=== PATIENT | female | born 1960 | race Caucasian/White ===

== ENCOUNTER 2017-03-29 12:40 | Emergency (ER) | payer OTHER ==
[2017-03-29 12:55] VITALS: BMI 33.6
--- NOTE | 2017-03-29 13:03 | PDOC ---
History of Present Illness - General Chief Complaint: Tachycardia Stated Complaint: CHEST PAIN - History of Present Illness Initial Comments: 03/29/17 13:38 56-year-old female history of hypertension and hyperlipidemia presents with palpitations since 9 AM this morning. Patient reports she was at work when she began to experience jaw and tongue pain and felt a little bit lightheaded. She then went home and began to feel short of breath. She called her daughter who then brought her to the emergency department. On arrival to the emergency department the patient was found to be tachycardic to 194. BP 139/90. EKG revealed supraventricular tachycardia. 2 attempts of vagal maneuvers followed by leg raises were attempted with no resolution of the tachycardia. The patient was then given 6 mg of adenosine with no resolution of the tachycardia followed by 12 mg of adenosine with improvement of tachycardia from 178 to 115. Repeat 12 -lead EKG with sinus tachycardia. Pt reports she feels much better but still has some SOB. No hx SVT. Prior to symptoms, pt was in her [facility], denies CP, headache, focal weakness, abd pain, LE edema, fevers, chills, N/V/D. Past History - Past Medical History Allergies/Adverse Reactions: Allergies Allergy/AdvReac Type Severity Reaction Status Date / Time No Known Allergies Allergy Verified 03/29/17 12:54 Home Medications: Ambulatory Orders Atorvastatin Ca [Lipitor] 20 mg PO HS 03/29/17 Losartan Potassium [Cozaar -] 50 mg PO DAILY 03/29/17 Other medical history: DENIES - Surgical History Cholecystectomy: Yes - Suicide/Smoking/Psychosocial Hx Smoking History: Never smoked Hx Alcohol Use: No Drug/Substance Use Hx: No Substance Use Type: None Review of Systems - Review of Systems Comments:: 03/29/17 15:23 GENERAL/CONSTITUTIONAL: No fever or chills. No weakness. HEAD, EYES, EARS, NOSE AND THROAT: No change in vision. No ear pain or discharge. No sore throat. GASTROINTESTINAL: No nausea, vomiting, diarrhea or constipation. GENITOURINARY: No dysuria, frequency, or change in urination. CARDIOVASCULAR: No chest pain or shortness of breath. RESPIRATORY: No cough, wheezing, or hemoptysis. MUSCULOSKELETAL: No joint or muscle swelling or pain. No neck or back pain. SKIN: No rash NEUROLOGIC: No headache, vertigo, loss of consciousness, or change in strength/ sensation. ENDOCRINE: No increased thirst. No abnormal weight change. HEMATOLOGIC/LYMPHATIC: No anemia, easy bleeding, or history of blood clots. ALLERGIC/IMMUNOLOGIC: No hives or skin allergy. *Physical Exam - Vital Signs Last Vital Signs Temp Pulse Resp BP Pulse Ox 98.2 F 194 H 20 139/65 100 03/29/17 12:50 03/29/17 12:50 03/29/17 12:50 03/29/17 12:50 03/29/17 12:50 - Physical Exam Comments: 03/29/17 15:38 GENERAL: Awake, alert, and fully oriented, in no acute distress HEAD: No signs of trauma EYES: PERRLA, EOMI, sclera anicteric, conjunctiva clear ENT: Auricles normal inspection, hearing grossly normal, nares patent, oropharynx clear without exudates. Moist mucosa NECK: Normal ROM, supple, no lymphadenopathy, JVD, or masses LUNGS: Breath sounds equal, clear to auscultation bilaterally. No wheezes, and no crackles HEART: tachy but regular to 184, normal S1 and S2, no murmurs, rubs or gallops ABDOMEN: Soft, nontender, normoactive bowel sounds. No guarding, no rebound. No masses EXTREMITIES: Normal range of motion, no edema. No clubbing or cyanosis. No cords, erythema, or tenderness BACK: No midline spinal tenderness in cervical/thoracic/lumbar region NEUROLOGICAL: Normal speech, cranial nerves intact, negative pronator drift, 5/ 5 strength in all 4 extremities, normal sensation to light touch in all 4 extremities, normal cerebellar exam, normal gait, normal reflexes and tone SKIN: Warm, Dry, normal turgor, no rashes or lesions noted. Heart Score/ECG Review - History History: Slightly suspicious - Electrocardiogram EKG: Non specific repolarization disturbance - Age Age: 45-65 - Risk Factors Risk Factors Heart Score: Yes Hx Hypercholesterolemia, Yes Hx Hypertension Based on the list above the patient has:: 1-2 risk factors - Troponin Troponin: </= normal limit - Score Heart Score - Total: 3 #1 03/29/17 13:05 Initial EKG with SVT to rate of 183. Normal axis, TWI III and avf, no ANISH 03/29/17 13:21 Post adenosine: Sinus tachycardia, rate 117, normal axis. TWI leads III and Avf, no ANISH ED Treatment Course - LABORATORY CBC & Chemistry Diagram: 03/29/17 14:00 03/29/17 14:00 Medical Decision Making - Critical Care Time Total Critical Care Time (minutes): 30 Critical Care Statement: The care of this patient involved high complexity decision making to prevent further life threatening deterioration of the patient 's condition and/or to evaluate & treat vital organ system(s) failure or risk of failure. - Medical Decision Making 03/29/17 13:55 56yo F hx HTN, HL p/w SVT, resolved with adenosine. Exam unremarkable. Due to preceding SOB and jaw pain, there is a concern for ACS vs PE, although these symptoms may have been 2/2 tachycardia. Heart score is 3. WIll check tropx2. -labs -CXR -discuss results with Dr. Knox 03/29/17 15:40 Initial labs including dimer and trop negative. Pt signed out to Dr. Prasad for further eval and management. *DC/Admit/Observation/Transfer Diagnosis at time of Disposition: Supraventricular arrhythmia - Attestations Physician Attestion: 03/29/17 19:32 I, Dr. Radha Frank MD, attest that this document has been prepared under my direction and personally reviewed by me in its entirety. I further attest, that it accurately reflects all work, treatment, procedures and medical decision -making performed by me.
[2017-03-29] MEDS ORDERED: ADENOSINE 6 MG/2 ML VIAL IVPUSH ONE ×3 (13:12→13:43)
[2017-03-29] MEDS ORDERED: SODIUM CHLORIDE 1,000 ML IV ONE (13:52)
[2017-03-29 14:06] LABS: BASOPHIL 0.6 % (0-2.0); EOSINOPHIL 0.9 % (0-4.5); MCH 29.2 pg (25.7-33.7); MCHC 32.6 g/dl (32.0-36.0); MEAN CELL VOLUME 89.4 fl (80-96); MEAN PLT VOLUME 8.4 fl (7.5-11.1); NEUTROPHILS 61.8 % (42.8-82.8); PLATELET COUNT 346 K/MM3 (134-434); RDW 13.4 % (11.6-15.6); WHITE BLOOD COUNT 13.6 K/mm3 (4.0-10.0)
[2017-03-29 14:28] LABS: ALBUMIN 4.8 g/dl (3.4-5.0); ANION GAP 11 (8-16); BILIRUBIN,TOTAL 0.7 mg/dL (0.2-1.0); CALCIUM 10.6 mg/dL (8.5-10.1); CO2 24 mmol/L (21-32); GLUCOSE,RANDOM 160 mg/dL (74-106); MAGNESIUM 2.1 mg/dL (1.8-2.4); SGOT/AST 61 U/L (15-37); SGPT/ALT 71 U/L (12-78); TOT PROT 8.5 g/dl (6.4-8.2)
[2017-03-29 14:37] LABS: ALK PHOS 118 U/L (45-117); TROPONIN I < 0.02 ng/ml (0.00-0.05)
[2017-03-29] MEDS ORDERED: METOPROLOL TARTRATE 25 MG TABLET (FP) PO ONE (19:00)
[2017-03-29] MEDS ORDERED: METOPROLOL TARTRATE 25 MG TABLET (FP) ONE (19:13)
[2017-03-29 19:41] LABS: TROPONIN I 0.04 ng/ml (0.00-0.05)
[2017-03-29 20:43] VITALS: BP 122/74; PULSE 88; TEMP 98.6
--- NOTE | 2017-03-29 22:02 | PDOC ---
*Physical Exam - Vital Signs Last Vital Signs Temp Pulse Resp BP Pulse Ox 98.2 F 96 H 18 114/88 97 03/29/17 12:50 03/29/17 16:51 03/29/17 16:51 03/29/17 16:51 03/29/17 16:51 - Physical Exam Comments: 03/29/17 20:11 Patient was endorsed to me by Dr. Lopez. Patient is a well-appearing 56-year- old female who presented to the ER with palpitations, shortness of breath and jaw pain. Patient was noted to be in narrow complex tachycardia at a rate of 175 bpm. Patient failed vagal maneuvers and the 6 mg of adenosine. After administration of the 12 mg of adenosine, patient cardioverted to normal sinus rhythm and has remained in normal sinus since. cbc/cmp/d-dimer are wnl. serial cardiac enzymes are wnl/ I discussed the case with Dr. ricci, patient' s PMD. He agrees with the plan of metoprolol-25 mg by mouth twice a day with outpatient follow-up. Patient stable for discharge with outpatient follow-up as planned. ED Treatment Course - LABORATORY CBC & Chemistry Diagram: 03/29/17 14:00 03/29/17 14:00 - ADDITIONAL ORDERS Additional order review: Laboratory Results 03/29/17 03/29/17 03/29/17 19:00 14:00 14:00 D-Dimer < 200 Sodium 135 L Potassium 4.5 Chloride 100 Carbon Dioxide 24 Anion Gap 11 BUN 20 H Creatinine 1.0 Creat Clearance w eGFR 57.78 Random Glucose 160 H Calcium 10.6 H Magnesium 2.1 Total Bilirubin 0.7 AST 61 H ALT 71 Alkaline Phosphatase 118 H Creatine Kinase 98 Troponin I 0.04 < 0.02 Total Protein 8.5 H Albumin 4.8 TSH 1.90 03/29/17 14:00 RBC 5.64 H MCV 89.4 MCHC 32.6 RDW 13.4 MPV 8.4 Neutrophils % 61.8 Lymphocytes % 30.0 Monocytes % 6.7 Eosinophils % 0.9 Basophils % 0.6 - Medications Given in the ED: ED Medications Discontinued Medications Generic Name Dose Route Start Last Admin Trade Name Freq PRN Reason Stop Dose Admin Adenosine 6 mg 03/29/17 13:42 03/29/17 13:20 Adenocard - IVPUSH 03/29/17 13:43 6 mg NOW ONE Administration Adenosine 12 mg 03/29/17 13:43 03/29/17 13:25 Adenocard - IVPUSH 03/29/17 13:44 12 mg NOW ONE Administration Sodium Chloride 1,000 mls @ 1,000 mls/hr 03/29/17 13:52 03/29/17 13:53 Normal Saline - IV 03/29/17 14:51 1,000 mls/hr ASDIR ONE Administration Metoprolol Tartrate 25 mg 03/29/17 19:00 03/29/17 19:17 Lopressor - PO 03/29/17 19:01 25 mg ONCE ONE Administration *DC/Admit/Observation/Transfer Diagnosis at time of Disposition: Supraventricular arrhythmia - Discharge Dispostion Disposition: HOME Condition at time of disposition: Stable - Referrals Referrals: Landon Ricci MD [Primary Care Provider] - - Patient Instructions Printed Discharge Instructions: Paroxysmal Supraventricular Tachycardia - Post Discharge Activity
--- NOTE | 2017-04-06 14:19 | EKG ---
Test Reason : Blood Pressure : / mmHG Vent. Rate : 117 BPM Atrial Rate : 117 BPM P-R Int : 154 ms QRS Dur : 080 ms QT Int : 334 ms P-R-T Axes : 051 -01 013 degrees QTc Int : 465 ms SINUS TACHYCARDIA OTHERWISE NORMAL ECG WHEN COMPARED WITH ECG OF 22-FEB-2011 15:47, NO SIGNIFICANT CHANGE WAS FOUND Confirmed by BLADIMIR SPANGLER MD ([id number]) on 04/06/2017 2:19:01 PM Referred By: Confirmed By:BLADIMIR SPANGLER MD
--- NOTE | 2017-04-06 14:19 | EKG ---
Test Reason : Blood Pressure : / mmHG Vent. Rate : 183 BPM Atrial Rate : 174 BPM P-R Int : 000 ms QRS Dur : 092 ms QT Int : 246 ms P-R-T Axes : 000 -06 006 degrees QTc Int : 429 ms SUPRAVENTRICULAR TACHYCARDIA NONSPECIFIC ST ABNORMALITY ABNORMAL ECG WHEN COMPARED WITH ECG OF 22-FEB-2011 15:47, VENT. RATE HAS INCREASED BY 99 BPM Confirmed by BLADIMIR SPANGLER MD ([id number]) on 04/06/2017 2:18:50 PM Referred By: Confirmed By:BLADIMIR SPANGLER MD
== END 2017-03-29 20:50 | disposition home or self-care (01) ==
LOC: JER 12:40
PROC: 3E0337Z Introduction of Electrolytic and Water Balance Substance into Peripheral Vein, Percutaneous Approach (ICD-10-PCS; principal; 2017-03-29)
PROC: 3E033GC Introduction of Other Therapeutic Substance into Peripheral Vein, Percutaneous Approach (ICD-10-PCS; 2017-03-29)
PROC: 3E033GC Introduction of Other Therapeutic Substance into Peripheral Vein, Percutaneous Approach (ICD-10-PCS; 2017-03-29)
DX: I49.8 Other specified cardiac arrhythmias (principal); I10 Essential (primary) hypertension; E78.5 Hyperlipidemia, unspecified
CPT/HCPCS: 36415; 71010-TC; 80053; 83735; 84443; 84484; 85025; 85379; 93005; 93010; 99283-25

== ENCOUNTER 2018-05-22 10:58 | Emergency (ER) | payer OTHER ==
[2018-05-22 11:46] VITALS: TEMP 98.7; BMI 32.5
--- NOTE | 2018-05-22 12:04 | PDOC ---
History of Present Illness - General Chief Complaint: Pain, Acute Stated Complaint: PAIN,LT SIDE Time Seen by Provider: 05/22/18 11:52 History Source: Patient Exam Limitations: No Limitations - History of Present Illness Initial Comments: Pt is a 57 yo F, with PMH of HTN, HLD, and SVT (1 episode, resolved with adenosine) 05/22/18 13:44 Past History - Past Medical History Allergies/Adverse Reactions: Allergies Allergy/AdvReac Type Severity Reaction Status Date / Time No Known Allergies Allergy Verified 05/22/18 11:38 Home Medications: Ambulatory Orders Atorvastatin Ca [Lipitor] 20 mg PO HS 03/29/17 Losartan Potassium [Cozaar -] 50 mg PO DAILY 03/29/17 Metoprolol Tartrate 25 mg PO BID #30 tablet 03/29/17 Metformin HCl [Metformin HCl ER] 500 mg PO BID 05/22/18 Sulfamethoxazole/Trimethoprim [Bactrim Ds -] 1 tab PO BID #9 tablet 05/22/18 COPD: No HTN: Yes Hypercholesterolemia: Yes - Surgical History Cholecystectomy: Yes - Suicide/Smoking/Psychosocial Hx Smoking History: Never smoked Hx Alcohol Use: No Drug/Substance Use Hx: No Substance Use Type: None *Physical Exam - Vital Signs Last Vital Signs Temp Pulse Resp BP Pulse Ox 98.7 F 85 16 137/85 99 05/22/18 11:39 05/22/18 11:39 05/22/18 11:39 05/22/18 11:39 05/22/18 11:39 ED Treatment Course - LABORATORY CBC & Chemistry Diagram: 05/22/18 12:50 05/22/18 12:50 Medical Decision Making - Medical Decision Making Pt was seen at bedside, also will be seen by attending Dr. Frank. Pt presenting with back pain that radiates to her LLQ and groin. Pt states the pain started yesterday in her L lower back which she noticed while she was walking. When she awoke this morning, she felt the pain radiating towards her abdominal LLQ and L groin. She had nausea and 2 episodes of NBNB vomiting today. PE showed [] Considering [vs vs] Ordered work-up including CBC, CMP, lipase, lactic acid, UA, urine culture. Provided [interventions/meds] for improvement of [pain/symptom control]. Will continue to reassess pt and monitor for symptomatic improvement. 05/22/18 12:35 Pt states pain significantly improved after interventions. Pending urine sample for UA/culture. CBC and CMP generally WNL. Lipase 171. Lactic acid 1.9. 05/22/18 13:[address] r/o stones and other abdominal pathology (AAA, colitis, diverticulitis). Pt was placed in transport book. Pt has not provided urine sample. 05/22/18 14:17 Sent urine sample to lab. Pt returned from CT, pending read. 05/22/18 14:58 UA showed 3+ blood, trace leuk esterase; pending WBC/RBC 05/22/18 15:30 UA: 269 RBC, 7 WBC; providing pt fluids, BUN and Cr not significantly elevated to indicate renal failure. 05/22/18 15:35 [id number] CT/SPIRAL- RENAL-STONE CT Left flank and left lower quadrant pain. Rule out stone CT scan of the abdomen pelvis without oral and intravenous contrast Coronal and sagittal reformatted images were obtained The visualized lung base appears unremarkable and the heart is within normal limits in size. Status post cholecystectomy. The liver is within normal limits in size with mild decreased attenuation in the right hepatic lobe suggestive of fatty infiltration. There is mild central pneumobilia. Common bile duct measures 9 mm in diameter which is within normal limits for a postcholecystectomy patient. Evaluation of the spleen, pancreas and both adrenal glands appear unremarkable. The stomach is partially distended without wall thickening. There is dilatation of the duodenum, in particular second and third portion that may be on the basis of ileus. Both kidneys are within normal limits in size with punctate bilateral nonobstructing renal stones. There is mild left renal hydronephrosis with an obstructing stone in the proximal left ureter just distal to the ureteropelvic junction measuring approximately 4 x 3 mm in AP and transverse dimension and 5 mm in craniocaudal length. There is no evidence of small bowel obstruction. Normal-appearing terminal ileum and appendix. Normal stool burden in the colon with multiple diverticula in the distal descending and sigmoid colon and without evidence of acute diverticulitis. Normal size uterus. Partially distended urinary bladder without wall thickening or intraluminal layering stones. Note is made of a tiny fat-containing umbilical hernia. No free fluid, free air or enlarged lymph nodes are identified. Visualized osseous structures appear intact IMPRESSION: Status post cholecystectomy. Mild Central normal be a and mild fatty infiltration of the liver. Normal size common bile duct for a postcholecystectomy patient measuring 9 mm. Dilated duodenum without gross wall thickening, suggestive of ileus. Punctate nonobstructing bilateral renal stones. Obstructing stone in the proximal left ureter just distal to the ureteropelvic junction measuring 5 x 4 x 3 mm in craniocaudal, AP and transverse dimension with mild left renal hydronephrosis. Tiny fat-containing umbilical hernia Diverticulosis coli mainly in the distal descending and sigmoid colon without evidence of acute diverticulitis 05/22/18 15:[address] Moser, who agrees discharge to home is acceptable plan, with outpatient antibiotics (Bactrim DS BID x5days). Pt is to take her temperature every 6 hours, and return if she has a fever. Dr. Moser will see the pt tomorrow in clinic. First dose of PO Bactrim DS provided in the department. Strict return precautions provided with pt understanding. 05/22/18 16:09 *DC/Admit/Observation/Transfer Diagnosis at time of Disposition: Nephrolithiasis, Hydronephrosis with obstructing calculus - Discharge Dispostion Disposition: HOME Condition at time of disposition: Improved Decision to Admit order: No - Prescriptions Prescriptions: Sulfamethoxazole/Trimethoprim [Bactrim Ds -] 1 tab PO BID #9 tablet - Referrals Referrals: Landon Ricci MD [Primary Care Provider] - Serjio Moser MD., MD [Staff Physician] - - Patient Instructions Printed Discharge Instructions: DI for Kidney Stones Additional Instructions: You were seen in the ER today for back and lower abdominal pain. The results of your labs and imaging today showed some blood in your urine and the CT imaging showed an obstructing kidney stone. Please follow-up with your primary care doctor within 1-2 days to discuss your visit and make sure your symptoms have improved. Please see Dr. Moser in clinic tomorrow afternoon, his referral information has been provided for you. Please return to the ER if you have any worsening pain, development of fevers or chills, loss of consciousness, inability to tolerate food or fluids, or any other concerns. I have sent Bactrim (an antibiotic) to your pharmacy. Your first dose was given in the ER. Please take 1 tablet, twice per day, for 5 days (9 more tablets total ). - Post Discharge Activity
[2018-05-22] MEDS ORDERED: morphine CARPU-JECT 4 MG/1 ML DISP.SYRIN IVPUSH ONE (12:12)
[2018-05-22] MEDS ORDERED: KETOROLAC TROMETHAMINE 30 MG/1 ML VIAL IVPUSH ONE (12:13)
[2018-05-22] MEDS ORDERED: SODIUM CHLORIDE 1,000 ML IV STA (12:13)
[2018-05-22] MEDS ORDERED: KETOROLAC TROMETHAMINE 30 MG/1 ML VIAL ONE (13:00)
[2018-05-22] MEDS ORDERED: morphine SULFATE 4 MG/ML VIAL ONE (13:00)
[2018-05-22 13:05] LABS: BASO % 0.5 % (0-2.0); EOS % 0.2 % (0-4.5); HEMATOCRIT 41.8 % (32.4-45.2); HEMOGLOBIN 13.6 GM/dL (10.7-15.3); LYMPH % 14.2 % (8-40); MCH 28.7 pg (25.7-33.7); MCHC 32.6 g/dl (32.0-36.0); MEAN CELL VOLUME 88.2 fl (80-96); MEAN PLT VOLUME 7.7 fl (7.5-11.1); MONO % 3.6 % (3.8-10.2); NEUT % 81.5 % (42.8-82.8); PLATELET COUNT 247 K/MM3 (134-434); RBC 4.74 M/mm3 (3.60-5.2); RDW 13.7 % (11.6-15.6)
[2018-05-22 13:32] LABS: ALBUMIN 3.9 g/dl (3.4-5.0); ALK PHOS 98 U/L (45-117); ANION GAP 11 MMOL/L (8-16); BILIRUBIN,TOTAL 0.3 mg/dL (0.2-1); BLOOD UREA NITROGEN 19 mg/dL (7-18); CALCIUM 9.2 mg/dL (8.5-10.1); CHLORIDE 104 mmol/L (98-107); CO2 26 mmol/L (21-32); CREATININE 0.8 mg/dL (0.55-1.3); GLUCOSE,RANDOM 132 mg/dL (74-106); LIPASE 171 U/L (73-393); POTASSIUM 4.1 mmol/L (3.5-5.1); SGOT/AST 31 U/L (15-37); SGPT/ALT 54 U/L (13-61); SODIUM 141 mmol/L (136-145); TOT PROT 7.3 g/dl (6.4-8.2)
--- NOTE | 2018-05-22 14:07 | PDOC ---
Attending Attestation - Resident Resident Name: Mckenzie Rogers - ED Attending Attestation I have performed the following: I have examined & evaluated the patient, The case was reviewed & discussed with the resident, I agree w/resident's findings & plan, Exceptions are as noted - HPI HPI: 05/22/18 13:58 The patient is a 57 year old female, with a significant past medical history of hypertension, hyperlipidemia, and prior SVT which was resolved with adenosine, who presents to the emergency department with left lower back pain since yesterday with new radiation of pain to her left lower abdominal quadrant and left groin this morning. She also reportsone episode of emesis this morning which was NBNB. She reports normal BM this AM. HAs no hx kidney stones but her mother does. The patient denies chest pain, shortness of breath, headache and dizziness. The patient denies fever, chills, diarrhea and constipation. The patient denies dysuria, frequency, urgency and hematuria. Allergies: NKDA Family Hx: Kidney stones (mother) PCP - Dr. Landon Ricci - Physicial Exam PE: 05/22/18 13:59 agree with resident exam - Medical Decision Making 05/22/18 13:59 57yo F presents to the ED with L lower back pain with radiation to LLQ and L groin a/w NBNB emesis. Vitals wnl. Exam with no CVAT and no abd ttp. Labs thusfar wnl. DDx includes renal colic vs pyelo vs uti vs colitis vs diverticulitis. Plan to get CTAP, pain control, UA, and reassess.
[2018-05-22 15:23] LABS: URINE APPEARANCE CLEAR; URINE BILIRUBIN NEGATIVE (<2.0 mg/dL); URINE COLOR LTYELLOW; URINE GLUCOSE (UA) NEGATIVE (NEGATIVE); URINE KETONE NEGATIVE (NEGATIVE); URINE LEUK ESTERASE TRACE (NEGATIVE); URINE NITRITE NEGATIVE (NEGATIVE); URINE PROTEIN NEGATIVE (NEGATIVE); URINE UROBILINOGEN NEGATIVE mg/dL (0.2-1.0)
[2018-05-22 15:30] LABS: EPI CELLS RARE /HPF (FEW); URINE BACTERIA RARE /hpf (NONE SEEN); URINE MUCUS RARE
[2018-05-22] MEDS ORDERED: SULFAMETHOXAZOLE/TRIMETHOPRIM 800MG/160MG D.S. TABLET PO ONE (16:01)
[2018-05-22] MEDS ORDERED: SULFAMETHOXAZOLE/TRIMETHOPRIM 800MG/160MG D.S. TABLET ONE (16:15)
[2018-05-22 16:38] VITALS: BP 128/62; PULSE 88
== END 2018-05-22 16:38 | disposition home or self-care (01) ==
LOC: JER 10:58
PROC: 3E0337Z Introduction of Electrolytic and Water Balance Substance into Peripheral Vein, Percutaneous Approach (ICD-10-PCS; principal; 2018-05-22)
PROC: 3E033NZ Introduction of Analgesics, Hypnotics, Sedatives into Peripheral Vein, Percutaneous Approach (ICD-10-PCS; 2018-05-22)
PROC: 3E0333Z Introduction of Anti-inflammatory into Peripheral Vein, Percutaneous Approach (ICD-10-PCS; 2018-05-22)
DX: N13.2 Hydronephrosis with renal and ureteral calculous obstruction (principal)
CPT/HCPCS: 36415; 74176; 80053; 81003; 81015; 83605; 83690; 85025; 87086; 99284-25; J7030

== ENCOUNTER 2018-05-25 21:57 | Inpatient (IN) | payer OTHER ==
[2018-05-25] MEDS ORDERED: SODIUM CHLORIDE 1,000 ML IV STA (22:04)
[2018-05-25] MEDS ORDERED: KETOROLAC TROMETHAMINE 30 MG/1 ML VIAL IVPUSH ONE (22:04)
--- NOTE | 2018-05-25 22:04 | PDOC ---
Rapid Medical Evaluation Time Seen by Provider: 05/25/18 22:01 Medical Evaluation: Allergies Allergy/AdvReac Type Severity Reaction Status Date / Time No Known Allergies Allergy Verified 05/22/18 11:38 05/25/18 22:01 I have performed a brief in person evaluation of this patient. The patient presents with a chief complaints of: Left renal colic x3d. Dx with renal colic x3d ago. +left flank pain Denies urinary frequency/urgency/burn upon urination Deneies any cp, sob, abd pain 2100hrs: Motrin 200mg and Benadryl 25mg Pertinent physical exam findings: Left flank pin on percussion I have ordered the following: ua, cbc, cmp, NS 1L The patient will proceed to the ED for further evaluation. 05/22/[address] impression: Status post cholecystectomy. Mild Central normal be a and mild fatty infiltration of the liver. Normal size common bile duct for a postcholecystectomy patient measuring 9 mm. Dilated duodenum without gross wall thickening, suggestive of ileus. Punctate nonobstructing bilateral renal stones. Obstructing stone in the proximal left ureter just distal to the ureteropelvic junction measuring 5 x 4 x 3 mm in craniocaudal, AP and transverse dimension with mild left renal hydronephrosis. Tiny fat-containing umbilical hernia Diverticulosis coli mainly in the distal descending and sigmoid colon without evidence of acute diverticulitis
[2018-05-25] MEDS ORDERED: KETOROLAC TROMETHAMINE 30 MG/1 ML VIAL ONE (22:13)
[2018-05-25] MEDS ORDERED: ONDANSETRON 4 MG/2 ML VIAL ONE (22:15)
--- NOTE | 2018-05-25 22:27 | PDOC ---
History of Present Illness - General Chief Complaint: Pain, Acute Stated Complaint: PAIN, ACUTE Time Seen by Provider: 05/25/18 22:01 History Source: Patient Exam Limitations: No Limitations - History of Present Illness Initial Comments: 05/25/18 22:18 57 YOF with h/o renal stones (dx 05/22/18 with [id number] ureteral stone at [facility] with mild left hydronephrosis on spiral CT), HTN, HLD, NIDDM on Metformin, and SVT converted with adenosine now on Metoprolol, who returns to the ED c/o continued left flank pain, has not been filtering urine, has not seen stone pass. Took Motrin 600-800 mg q4h over the past 3d, also 25 mg Benadryl this afternoon to try and sleep it off, otherwise no medications. Notes nausea for the past 3 days, decreased appetite, just does not feel like eating, had one episode vomiting 3 days ago but not since. Denies f/c, lightheadedness, dizziness, headache, LOC, abdominal pain, burning on urination, bloody urine, vaginal bleeding/discharge, diarrhea, constipation, black/bloody stool. Has been on Bactrim, states they found bacteria in her urine here 3 days ago. She was d/c home with very strict return precautions and plan was for Dr. Moser to see her in clinic the following day. Pt states she called and left a message at his office and didn't get call back, did not go to the clinic. Past History - Past Medical History Allergies/Adverse Reactions: Allergies Allergy/AdvReac Type Severity Reaction Status Date / Time No Known Allergies Allergy Verified 05/22/18 11:38 Home Medications: Ambulatory Orders Atorvastatin Ca [Lipitor] 20 mg PO HS 03/29/17 Losartan Potassium [Cozaar -] 50 mg PO DAILY 03/29/17 Metoprolol Tartrate 25 mg PO BID #30 tablet 03/29/17 Metformin HCl [Metformin HCl ER] 500 mg PO BID 05/22/18 COPD: No HTN: Yes Hypercholesterolemia: Yes - Surgical History Cholecystectomy: Yes - Suicide/Smoking/Psychosocial Hx Smoking History: Never smoked Information on smoking cessation initiated: No Hx Alcohol Use: No Drug/Substance Use Hx: No Substance Use Type: None Review of Systems - Review of Systems Able to Perform ROS?: Yes Comments:: 05/25/18 22:31 GEN: decreased appetite, no fever, chills, malaise, generalized weakness, or weight change HEENT: no ear pain, sore throat, vision change, or eye pain CV: no chest pain, palpitations, lightheadedness, syncope, or edema RESP: no cough, wheezing, or SOB GI: nausea, vomiting (1 episode 05/22), no abdominal pain, diarrhea, constipation, or white/black/bloody stool : left flank pain, no dysuria, hematuria, incontinence, retention, bleeding, or discharge MSK: no neck/back pain, muscle weakness/pain, or joint swelling/pain NEURO: no headache, seizure, vertigo, numbness, tingling, or focal weakness PSYCH: no substance use, no behavior change SKIN: no jaundice, no rash ROS otherwise negative except as noted in HPI *Physical Exam - Vital Signs Last Vital Signs Temp Pulse Resp BP Pulse Ox 98.8 F 104 H 20 139/95 98 05/25/18 22:04 05/25/18 22:04 05/25/18 22:04 05/25/18 22:04 05/25/18 22:04 05/25/18 22:33 GENERAL: pleasant and well-appearing but a bit uncomfortable adult female, A/Ox4 , no distress, answers questions appropriately, family member at bedside HEENT: PERRLA, EOMI, moist mucous membranes NECK/BACK: no midline ttp, no spinal stepoff or deformity, no hematoma, full ROM , neck supple CARDIOVASCULAR: regular rate/rhythm, normal S1S2, no MGR, strong peripheral pulses, capillary refill <2 seconds, extremities wwp, no edema LUNGS/RESPIRATORY: no respiratory distress, CTAB GI/ABDOMEN: symmetric pedl-fy-tvpt, normoactive BS, soft, minimal suprapubic and LLQ ttp, no midline pulsatile masses : Left CVA ttp EXTREMITIES: no muscle atrophy, no acute deformity, no edema SKIN: warm and dry, no pallor, no jaundice, no rash, no bruising, no skin breakdown, no cuts, no lesions NEUROLOGICAL: GCS 15, CN II-XII grossly intact, 5/5 strength proximally and distally, no facial droop ED Treatment Course - LABORATORY CBC & Chemistry Diagram: 05/26/18 06:30 05/26/18 06:30 - Medications Given in the ED: ED Medications Discontinued Medications Generic Name Dose Route Start Last Admin Trade Name Jeremy PRN Reason Stop Dose Admin Ketorolac Tromethamine 30 mg 05/25/18 22:04 05/25/18 22:18 Toradol Injection - IVPUSH 05/25/18 22:05 30 mg ONCE ONE Administration Medical Decision Making - Medical Decision Making 57 YOF Pt p/w left flank pain ongoing since diagnosed with left obstructing [facility] stone on 05/22/18, also nausea. Initial Vital Signs Temp Pulse Resp BP Pulse Ox 98.8 F 104 H 20 139/95 98 05/25/18 22:04 05/25/18 22:04 05/25/18 22:04 05/25/18 22:04 05/25/18 22:04 Exam: As noted in Physical Exam section. DDX IBNLT: renal colic, infected obstructive uropathy, UTI/pyelonephritis, rental artery aneurysm or dissection (jennifer w/ hematuria and no stone visualized on imaging), ACS, AAA/AD, pneumothorax, PE, cholecystitis, cholangitis, pancreatitis, gastritis, PUD, colitis, ruptured diverticulosis, diverticulitis wwo abscess or perforation, appendicitis, hernia, SBO, malignancy, splenic infarction, mesenteric ischemia, bowel perforation, ovarian torsion, ovarian cyst, PID, TOA, endometriosis, fibroid, musculoskeletal, constipation, etc. W/U ordered: CBCD CMP UA UCx TX ordered: IVF Awaiting full bladder for formal US. Laboratory Tests 05/25/18 05/25/18 05/25/18 22:15 22:15 22:15 WBC 11.5 H RBC 4.15 Hgb 12.0 Hct 36.7 MCV 88.4 MCH 28.9 MCHC 32.6 RDW 13.3 Plt Count 243 MPV 7.8 Absolute Neuts (auto) 8.0 Neutrophils % 69.6 Lymphocytes % 17.8 D Monocytes % 10.4 H D Eosinophils % 1.7 D Basophils % 0.5 Nucleated RBC % 0 Sodium 138 Potassium 4.2 Chloride 104 Carbon Dioxide 26 Anion Gap 9 BUN 24 H Creatinine 1.7 H Creat Clearance w eGFR 31.20 Random Glucose 128 H Calcium 9.4 Total Bilirubin 0.4 AST 26 ALT 39 Alkaline Phosphatase 92 Total Protein 7.0 Albumin 3.5 Urine Color Ltyellow Urine Appearance Clear Urine pH 5.0 Ur Specific [place] 1.021 Urine Protein Negative Urine Glucose (UA) Negative Urine Ketones Trace H Urine Blood Negative Urine Nitrite Negative Urine Bilirubin Negative Urine Urobilinogen Negative Ur Leukocyte Esterase Negative 05/25/18 23:[address] Moser; consult order has been placed, 1 gm ceftriaxone IVPB ordered. US/KIDNEY / RENAL US [id number] US/PELVIC / BLADDER US HISTORY PROVIDED: Rule out obstructing renal stone. Real time examination of the kidneys and urinary bladder demonstrates the following: The kidneys are normal in size with the right kidney measuring 9.8 x 5.3 x 5.0 cm and the left kidney measuring 12.9 x 5.7 x 5.8 cm. There is mild dilatation of the left upper collecting system. There is no evidence of right-sided hydronephrosis or contour deforming renal masses. There is no sonographic evidence of nephrolithiasis. Evaluation of the urinary bladder demonstrates no intrinsic bladder abnormalities. Bilateral ureteral jets were visualized. A pre-void bladder volume of 41 cc was calculated. A post voiding image demonstrates adequate emptying of the bladder with no significant postvoid residual. The uterus is normal in size measuring 7.6 x 5.7 x 3.6 cm. No uterine masses are seen. A normal appearing endometrium of 8 mm thickness is identified. The ovaries cannot be identified. There is no evidence of adnexal masses or free pelvic fluid collections. The mild sided hydronephrosis is unchanged since a prior CT scan of 05/22/2018. A mid ureteral calculus noted at that time could not be identified on this sonogram. IMPRESSION : Mild left-sided hydronephrosis. Please see above discussion. 05/26/18 00:55 The Pts symptoms persist despite ED treatments. The Pt is unsafe for discharge at this time. They require further hospital observation, workup, and treatment. Microblog sent to [facility] for admission. Blank Decision to Admit order is placed per ED protocol. 05/26/18 01:45 Spoke with admitting team resources representative Ofelia Ortega. Decision to Admit order corrected with Dr. Clemente name. *DC/Admit/Observation/Transfer Diagnosis at time of Disposition: BARBARA (acute kidney injury), Hydronephrosis with obstructing calculus - Discharge Dispostion Condition at time of disposition: Guarded Decision to Admit order: Yes - Referrals - Patient Instructions - Post Discharge Activity
[2018-05-25 22:34] LABS: BASO % 0.5 % (0-2.0); EOS % 1.7 % (0-4.5); HEMATOCRIT 36.7 % (32.4-45.2); LYMPH % 17.8 % (8-40); MCH 28.9 pg (25.7-33.7); MCHC 32.6 g/dl (32.0-36.0); MEAN CELL VOLUME 88.4 fl (80-96); MEAN PLT VOLUME 7.8 fl (7.5-11.1); MONO % 10.4 % (3.8-10.2); NEUT % 69.6 % (42.8-82.8); PLATELET COUNT 243 K/MM3 (134-434); RBC 4.15 M/mm3 (3.60-5.2); RDW 13.3 % (11.6-15.6); WHITE BLOOD COUNT 11.5 K/mm3 (4.0-10.0)
[2018-05-25 22:52] LABS: ALBUMIN 3.5 g/dl (3.4-5.0); ALK PHOS 92 U/L (45-117); ANION GAP 9 MMOL/L (8-16); BILIRUBIN,TOTAL 0.4 mg/dL (0.2-1); BLOOD UREA NITROGEN 24 mg/dL (7-18); CALCIUM 9.4 mg/dL (8.5-10.1); CHLORIDE 104 mmol/L (98-107); CO2 26 mmol/L (21-32); CREATININE 1.7 mg/dL (0.55-1.3); GLUCOSE,RANDOM 128 mg/dL (74-106); POTASSIUM 4.2 mmol/L (3.5-5.1); SGOT/AST 26 U/L (15-37); SGPT/ALT 39 U/L (13-61); SODIUM 138 mmol/L (136-145)
--- NOTE | 2018-05-25 23:33 | PDOC ---
Attending Attestation - HPI HPI: 05/26/18 00:25 The patient is a 57 year old female, with a significant past medical history of renal stones (dx 05/22/18 with [id number] ureteral stone at [facility] with mild left hydronephrosis on spiral CT), HTN, HLD, NIDDM, and SVT, who presents to the emergency department with, left flank pain. She notes taking Motrin and Benadryl for her symptoms, without relief. She has not been able to schedule urology follow-up yet. Allergies: NKDA Primary Care Physician: Dr. Ricci - Physicial Exam PE: 05/26/18 01:04 Constitutional: Awake, alert, oriented. No acute distress. Head: Normocephalic. Atraumatic Eyes: PERRL. EOMI. Conjunctivae are not pale. ENT: Mucous membranes are moist and intact. Posterior pharynx without exudates or erythema. Uvula midline. Neck: Supple. Full ROM. No lymphadenopathy. +Cardiovascular: Tachycardic. Distal pulses are 2+ and symmetric. Pulmonary/Chest: No evidence of respiratory distress. Clear to auscultation bilaterally No wheezing, rales or rhonchi. Abdominal: Soft and non-distended. There is no tenderness. No rebound, guarding or rigidity. No organomegaly. No palpable masses. Good bowel sounds. +Back: Left CVA and flank tenderness. Musculoskeletal: No edema. No cyanosis. No clubbing. Full range of motion in all extremities. No calf tenderness. Radial/pedal pulses are intact and 2+ bilaterally Skin: Skin is warm and dry. No petechiae. No purpura. Neurological: Alert and oriented to person, place, and time. Cranial nerves II -XII are grossly intact. Normal speech. Strength is grossly symmetric. No sensory deficits. Psychiatric: Good eye contact. Normal interaction, affect and behavior. <Christina Rankin - Last Filed: 05/26/18 01:04> - Resident Resident Name: Cheryl Alexandra - ED Attending Attestation I have performed the following: I have examined & evaluated the patient, The case was reviewed & discussed with the resident, I agree w/resident's findings & plan, Exceptions are as noted - Medical Decision Making 05/25/18 23:20 I, Dr. Shelley Workman, DO, attest that this document has been prepared under my direction and personally reviewed by me in its entirety. I further attest, that it accurately reflects all work, treatment, procedures and medical decision -making performed by me. 05/25/18 23:20 a/p: 57yo female with recent dx of proximal L renal stone -still with pain, more discomfort to L cva region and L flank -no dysuria -denies hematuria at this time -no f/c -c/o nausea, but no vomiting -will repeat labs, renal ultrasound 05/25/18 23:33 resident discussed the case with Dr. Moser 05/25/18 23:34 BARBARA now on labs will need admission for further eval of obstructing renal stone 05/26/18 02:01 resident discussed the case with JM who accepts pt to service <Shelley Workman - Last Filed: 05/26/18 02:01> Attestations - Attestations 05/26/18 00:25 Documentation prepared by Christina Rankin, acting as medical staff director for Shelley Workman DO. <Christina Rankin - Last Filed: 05/26/18 01:04>
[2018-05-25] MEDS ORDERED: CEFTRIAXONE 1,000 MG in DEXTROSE 5%-WATER - 50 ML IVPB ONE (23:34)
[2018-05-25] MEDS ORDERED: CEFTRIAXONE 1 GM/50 ML BAG ONE (23:43)
[2018-05-25 23:46] LABS: URINE APPEARANCE CLEAR; URINE BILIRUBIN NEGATIVE (<2.0 mg/dL); URINE COLOR LTYELLOW; URINE GLUCOSE (UA) NEGATIVE (NEGATIVE); URINE KETONE TRACE (NEGATIVE); URINE LEUK ESTERASE NEGATIVE (NEGATIVE); URINE NITRITE NEGATIVE (NEGATIVE); URINE PROTEIN NEGATIVE (NEGATIVE); URINE UROBILINOGEN NEGATIVE mg/dL (0.2-1.0)
--- NOTE | 2018-05-26 02:29 | PN ---
Teaching Attending Note Name of Resident: Ofelia Ortega ATTENDING PHYSICIAN STATEMENT I saw and evaluated the patient. I reviewed the resident's note and discussed the case with the resident. I agree with the resident's findings and plan as documented. SUBJECTIVE: Patient is a 57 year old woman with a PMH of renal stones (dx 05/22/18 with [id number] ureteral stone at [facility] with mild left hydronephrosis on spiral CT), HTN, HLD, NIDDM, and SVT, who presents to the emergency department with, left flank pain. She notes taking Motrin and Benadryl for her symptoms, without relief. She has not been able to schedule urology follow-up yet. OBJECTIVE: Alert Vital Signs Period Temp Pulse Resp BP Sys/[place] Pulse Ox Last 24 Hr 98.8 F 104 20 139/95 98 HEENT: No Jaundice, eye redness or discharge, PERRLA, EOMI. Normocephalic, atraumatic. External ears are normal and hearing is grossly intact. No nasal discharge. Neck: Supple, nontender. No palpable adenopathy or thyromegaly. No JVD Chest: Good effort. Clear to auscultation and percussion. Heart: Regular. No S3, rub or murmur Abdomen: Not distended, soft, left flank and CVA tenderness and no HSM. No rebound or guarding. Normoactive bowel sounds. Ext: Peripheral pulses intact. No leg edema. Skin: Warm and dry. No petechiae, rash or ecchymosis. Neuro: Alert. Oriented x3. CN 2-12 grossly intact. Sensation grossly intact in all four extremities and DTR are symmetric. Home Medications Medication Instructions Recorded Atorvastatin Ca [Lipitor] 20 mg PO HS 03/29/17 Losartan Potassium [Cozaar -] 50 mg PO DAILY 03/29/17 Metoprolol Tartrate 25 mg PO BID #30 tablet 03/29/17 Metformin HCl [Metformin HCl ER] 500 mg PO BID 05/22/18 Sulfamethoxazole/Trimethoprim 1 tab PO BID #9 tablet 05/22/18 [Bactrim Ds -] Abnormal Lab Results 05/25/18 05/25/18 05/25/18 22:15 22:15 22:15 WBC 11.5 H Monocytes % 10.4 H D BUN 24 H Creatinine 1.7 H Random Glucose 128 H Urine Ketones Trace H ASSESSMENT AND PLAN: 1. Renal colic, hydronephrosis with possible pyelonephritis - Treat with IV Rocephin, send urine for culture and use morphine for pain control. Give IV NS, flomax and strain her urine. Consult Urology. Outpatient workup to search for stone disease risk factor. 2. DM - For now, we will hold the home diabetes drugs and implement sliding scale insulin regimen. Provide comprehensive diabetes care with patient teaching and counseling about the importance of euglycemia, eye care and foot care. 3. BARBARA - May be dehydrated or have underlying CKD. Will avoid nephrotoxic agents such as NSAIDS, aminoglycosides, contrast dyes and certain Alternative medicine products. 4. Obesity - Will provide patient all the necessary assistance, counseling and positive reinforcement to facilitate weight loss. Consult computer recycling worker. 5. DVT prophylaxis - AMADOU Bland 6. Advance directives - Full code
--- NOTE | 2018-05-26 03:13 | HP ---
CHIEF COMPLAINT: L flank pain PCP: HISTORY OF PRESENT ILLNESS: 57 y/o F with hx nephrolithiasis ([id number] ureteral stone at [facility] with mild L hydro on spiral Ct- dx recent admission) HTN, HLD, NIDDM, SVT who presents to the ED with continued L flank pain, after recent d/c 05/22/18 from [facility] ED. On recent admission, pt was seen by urology, Dr. Moser and d/c with 5 day course Bactrim. Pt was to f/u with Dr. Moser after visit, however never did. Today, with continued L flank pain a/w nausea and 1 episode of NBNB emesis. Pain was not alleviated with motrin or benadryl, thus pt came to ED for further evaluation. During this time, she also endorses decreased PO intake. Denies MCC[place]OUGH, fever, chills, SOB, chest pain, or changes in bowel function. ER course was notable for: (1) Rocephin (2) toradol (3) zofran Recent Travel: denies PAST MEDICAL HISTORY: as above PAST SURGICAL HISTORY: hx cholecystectomy Social History: Smoking: denies Alcohol:denies Drugs: denies Family History: denies Allergies No Known Allergies Allergy (Verified 05/22/18 11:38) HOME MEDICATIONS: Home Medications Medication Instructions Recorded Atorvastatin Ca [Lipitor] 20 mg PO HS 03/29/17 Losartan Potassium [Cozaar -] 50 mg PO DAILY 03/29/17 Metoprolol Tartrate 25 mg PO BID #30 tablet 03/29/17 Metformin HCl [Metformin HCl ER] 500 mg PO BID 05/22/18 Sulfamethoxazole/Trimethoprim 1 tab PO BID #9 tablet 05/22/18 [Bactrim Ds -] will need to verify meds from pharmacy in AM REVIEW OF SYSTEMS CONSTITUTIONAL: +malaise, loss of appetite Absent: fever, chills, diaphoresis, generalized weakness, weight change HEENT: Absent: rhinorrhea, nasal congestion, throat pain, throat swelling, difficulty swallowing, mouth swelling, ear pain, eye pain, visual changes CARDIOVASCULAR: Absent: chest pain, syncope, palpitations, irregular heart rate, lightheadedness , peripheral edema RESPIRATORY: Absent: cough, shortness of breath, dyspnea with exertion, orthopnea, wheezing, stridor, hemoptysis GASTROINTESTINAL: +nausea Absent: abdominal pain, abdominal distension, vomiting, diarrhea, constipation, melena, hematochezia GENITOURINARY: +flank pain Absent: dysuria, frequency, urgency, hesitancy, hematuria, genital pain MUSCULOSKELETAL: Absent: myalgia, arthralgia, joint swelling, back pain, neck pain SKIN: Absent: rash, itching, pallor HEMATOLOGIC/IMMUNOLOGIC: Absent: easy bleeding, easy bruising, lymphadenopathy, frequent infections ENDOCRINE: Absent: unexplained weight gain, unexplained weight loss, heat intolerance, cold intolerance NEUROLOGIC: Absent: headache, focal weakness or paresthesias, dizziness, unsteady gait, seizure, mental status changes, bladder or bowel incontinence PSYCHIATRIC: Absent: anxiety, depression, suicidal or homicidal ideation, hallucinations. PHYSICAL EXAMINATION Vital Signs - 24 hr 05/25/18 22:04 Temperature 98.8 F Pulse Rate 104 H Respiratory 20 Rate Blood Pressure 139/95 O2 Sat by Pulse 98 Oximetry (%) GENERAL: Resting. Awake, alert, and fully oriented, in no acute distress. HEAD: Normal with no signs of trauma. EYES: Pupils equal, round and reactive to light, extraocular movements intact, sclera anicteric EARS, NOSE, THROAT: Ears normal, nares patent, oropharynx clear without exudates. NECK: Normal range of motion, supple LUNGS: Breath sounds equal, clear to auscultation bilaterally. No wheezes, and no crackles. No accessory muscle use. HEART: Regular rate and rhythm, normal S1 and S2 without murmur, rub or gallop. ABDOMEN: Soft, +L flank tenderness, CVA tenderness. no guarding, no rebound. MUSCULOSKELETAL: Normal range of motion at all joints. LOWER EXTREMITIES: 2+ pt pulses, warm, well-perfused. No calf tenderness. No peripheral edema. NEUROLOGICAL: Cranial nerves II-XII intact. PSYCHIATRIC: Cooperative. Laboratory Results - last 24 hr 05/25/18 05/25/18 05/25/18 22:15 22:15 22:15 WBC 11.5 H RBC 4.15 Hgb 12.0 Hct 36.7 MCV 88.4 MCH 28.9 MCHC 32.6 RDW 13.3 Plt Count 243 MPV 7.8 Absolute Neuts (auto) 8.0 Neutrophils % 69.6 Lymphocytes % 17.8 D Monocytes % 10.4 H D Eosinophils % 1.7 D Basophils % 0.5 Nucleated RBC % 0 Sodium 138 Potassium 4.2 Chloride 104 Carbon Dioxide 26 Anion Gap 9 BUN 24 H Creatinine 1.7 H Creat Clearance w eGFR 31.20 Random Glucose 128 H Calcium 9.4 Total Bilirubin 0.4 AST 26 ALT 39 Alkaline Phosphatase 92 Total Protein 7.0 Albumin 3.5 Urine Color Ltyellow Urine Appearance Clear Urine pH 5.0 Ur Specific [place] 1.021 Urine Protein Negative Urine Glucose (UA) Negative Urine Ketones Trace H Urine Blood Negative Urine Nitrite Negative Urine Bilirubin Negative Urine Urobilinogen Negative Ur Leukocyte Esterase Negative ASSESSMENT/PLAN: 57 y/o F with hx nephrolithiasis ([id number] ureteral stone at [facility] with mild L hydro on spiral Ct- dx recent admission) HTN, HLD, NIDDM, SVT who presents to the ED with continued L flank pain, after recent d/c 05/22/18 from [facility] ED. #Renal colic, possible pyelonephritis given recent hx d/c 05/22 noncompliant with uro f/u continue rocephin 1g IVPB qd f/u UCx. also recommend straining urine urology; Dr. Moser. as per ED, will see pt in AM IV NS, will give flomax #BARBARA likely 2/2 dehydration continue with IVF reassess after hydration avoid nephrotoxic agents f/u renal, bladder sono #DM ISS ACHS BGM #F/E/N IV NS 100 cc/hr continue to follow lytes NPO, check if tolerating PO. #PPX DVT: CASSIUS's, SCD's #Dispo med surg Visit type - Emergency Visit Emergency Visit: Yes ED Registration Date: 05/26/18 Care time: The patient presented to the Emergency Department on the above date and was hospitalized for further evaluation of their emergent condition. - New Patient This patient is new to me today: Yes Date on this admission: 05/26/18 - Critical Care Critical Care patient: No
[2018-05-26] MEDS: SODIUM CHLORIDE 1,000 ML IV SCH ×3 (03:59→23:58)
[2018-05-26] MEDS ORDERED: KETOROLAC TROMETHAMINE 30 MG/1 ML VIAL IM ONE (04:27)
[2018-05-26 07:37] LABS: BASO % 0.4 % (0-2.0); EOS % 1.9 % (0-4.5); HEMATOCRIT 35.3 % (32.4-45.2); HEMOGLOBIN 11.5 GM/dL (10.7-15.3); MCH 29.2 pg (25.7-33.7); MCHC 32.4 g/dl (32.0-36.0); MEAN CELL VOLUME 89.9 fl (80-96); MEAN PLT VOLUME 7.5 fl (7.5-11.1); MONO % 10.4 % (3.8-10.2); NEUT % 69.3 % (42.8-82.8); PLATELET COUNT 223 K/MM3 (134-434); RBC 3.93 M/mm3 (3.60-5.2); RDW 13.8 % (11.6-15.6); WHITE BLOOD COUNT 8.7 K/mm3 (4.0-10.0)
[2018-05-26 07:48] LABS: ANION GAP 7 MMOL/L (8-16); BLOOD UREA NITROGEN 19 mg/dL (7-18); CALCIUM 8.7 mg/dL (8.5-10.1); CHLORIDE 107 mmol/L (98-107); CO2 25 mmol/L (21-32); CREATININE 1.4 mg/dL (0.55-1.3); GLUCOSE,RANDOM 107 mg/dL (74-106); MAGNESIUM 2.1 mg/dL (1.8-2.4); PHOSPHOROUS 3.8 mg/dL (2.5-4.9); POTASSIUM 4.3 mmol/L (3.5-5.1); SODIUM 139 mmol/L (136-145)
[2018-05-26] MEDS ORDERED: cefTRIAXone SODIUM 1 GM VIAL ONE (09:07)
[2018-05-26] MEDS ORDERED: DEXTROSE 5%-WATER - 50 ML IVPB ONE (09:07)
[2018-05-26] MEDS: TAMSULOSIN HCL 0.4 MG CAP PO SCH (09:24)
[2018-05-26] MEDS ORDERED: CEFTRIAXONE 1 GM in DEXTROSE 5%-WATER - 50 ML IVPB SCH (10:00)
[2018-05-26] MEDS ORDERED: SODIUM CHLORIDE 0.9% 500 ML INFUS.BAG IV ONE (11:55)
--- NOTE | 2018-05-26 11:57 | PN ---
Physical Exam: SUBJECTIVE: She is in no distress at this time,she has been taking advil q6h for pain control at home denies any fever/ chills at home OBJECTIVE: She is in no distress at this time , moves in bed with no distress no CVA tenderness, no rash in the area MMM No Vital Signs Period Temp Pulse Resp BP Sys/Corona Pulse Ox Last 24 Hr 98.7 F-99 F 88-104 18-22 135-156/68-95 98-99 GENERAL: The patient is awake, alert, and fully oriented, in no acute distress. HEAD: Normal with no signs of trauma. EYES: PERRL, extraocular movements intact, sclera anicteric, conjunctiva clear. No ptosis. ENT: Ears normal, nares patent, oropharynx clear without exudates, moist mucous membranes. NECK: Trachea midline, full range of motion, supple. LUNGS: Breath sounds equal, clear to auscultation bilaterally, no wheezes, no crackles, no accessory muscle use. HEART: Regular rate and rhythm, S1, S2 without murmur, rub or gallop. ABDOMEN: Soft, nontender, nondistended, normoactive bowel sounds, no guarding, no rebound, no hepatosplenomegaly, no masses. EXTREMITIES: 2+ pulses, warm, well-perfused, no edema. NEUROLOGICAL: Cranial nerves II through XII grossly intact. Normal speech, gait not observed. PSYCH: Normal mood, normal affect. SKIN: Warm, dry, normal turgor, no rashes or lesions noted Laboratory Results - last 24 hr 05/25/18 05/25/18 05/25/18 22:15 22:15 22:15 WBC 11.5 H RBC 4.15 Hgb 12.0 Hct 36.7 MCV 88.4 MCH 28.9 MCHC 32.6 RDW 13.3 Plt Count 243 MPV 7.8 Absolute Neuts (auto) 8.0 Neutrophils % 69.6 Lymphocytes % 17.8 D Monocytes % 10.4 H D Eosinophils % 1.7 D Basophils % 0.5 Nucleated RBC % 0 Sodium 138 Potassium 4.2 Chloride 104 Carbon Dioxide 26 Anion Gap 9 BUN 24 H Creatinine 1.7 H Creat Clearance w eGFR 31.20 POC Glucometer Random Glucose 128 H Calcium 9.4 Phosphorus Magnesium Total Bilirubin 0.4 AST 26 ALT 39 Alkaline Phosphatase 92 Total Protein 7.0 Albumin 3.5 Urine Color Ltyellow Urine Appearance Clear Urine pH 5.0 Ur Specific [place] 1.021 Urine Protein Negative Urine Glucose (UA) Negative Urine Ketones Trace H Urine Blood Negative Urine Nitrite Negative Urine Bilirubin Negative Urine Urobilinogen Negative Ur Leukocyte Esterase Negative 05/26/18 05/26/18 05/26/18 06:30 06:30 07:05 WBC 8.7 RBC 3.93 Hgb 11.5 Hct 35.3 MCV 89.9 MCH 29.2 MCHC 32.4 RDW 13.8 Plt Count 223 MPV 7.5 Absolute Neuts (auto) 6.1 Neutrophils % 69.3 Lymphocytes % 18.0 Monocytes % 10.4 H Eosinophils % 1.9 Basophils % 0.4 Nucleated RBC % 0 Sodium 139 Potassium 4.3 Chloride 107 Carbon Dioxide 25 Anion Gap 7 L BUN 19 H Creatinine 1.4 H Creat Clearance w eGFR 39.04 POC Glucometer 134 Random Glucose 107 H Calcium 8.7 Phosphorus 3.8 Magnesium 2.1 Total Bilirubin AST ALT Alkaline Phosphatase Total Protein Albumin Urine Color Urine Appearance Urine pH Ur Specific [place] Urine Protein Urine Glucose (UA) Urine Ketones Urine Blood Urine Nitrite Urine Bilirubin Urine Urobilinogen Ur Leukocyte Esterase 05/26/18 11:31 WBC RBC Hgb Hct MCV MCH MCHC RDW Plt Count MPV Absolute Neuts (auto) Neutrophils % Lymphocytes % Monocytes % Eosinophils % Basophils % Nucleated RBC % Sodium Potassium Chloride Carbon Dioxide Anion Gap BUN Creatinine Creat Clearance w eGFR POC Glucometer 110 Random Glucose Calcium Phosphorus Magnesium Total Bilirubin AST ALT Alkaline Phosphatase Total Protein Albumin Urine Color Urine Appearance Urine pH Ur Specific [place] Urine Protein Urine Glucose (UA) Urine Ketones Urine Blood Urine Nitrite Urine Bilirubin Urine Urobilinogen Ur Leukocyte Esterase Active Medications Generic Name Dose Route Start Last Admin Trade Name Freq PRN Reason Stop Dose Admin Sodium Chloride 1,000 mls @ 100 mls/hr 05/26/18 03:15 05/26/18 03:59 Normal Saline - IV 100 mls/hr ASDIR NATALIE Administration Ceftriaxone Sodium 1 gm/ 50 mls @ 100 mls/hr 05/26/18 10:00 05/26/18 09:24 Dextrose IVPB 100 mls/hr DAILY NATALIE Administration Insulin Aspart 1 vial 05/26/18 07:00 Novolog Vial Sliding Scale - SQ ACHS NATALIE Protocol Tamsulosin HCl 0.4 mg 05/26/18 08:30 05/26/18 09:24 Flomax - PO 0.4 mg DAILY@0830 [facility] Administration ASSESSMENT/PLAN: She is a 57 Y/O F W DM, Obesity, nephrolithiasis, was recently evaluated in the ED for nephrolithiasis, was sent home on po Antibiotics, she is back due to severe pain, she initially was not on tamsulosin on DC Nephrolithiasis: will C/W iV fluids with bollus of fluids in between C/W tamssulosin 0.4 mg daily will F/u with recs pain control with percocet there is no fending in favor of infection at this time, No WBC in UA, will DC the antibiotics, will monitor Diet: will restart diabetic diet obesity: auto travel counselor about weight loss Dispo: DC home tomorrow DM:" she is on Metformin at home, will give sliding scale for coverage Will C./w lipitor home dose DVTppx: LOVENOX SQ Visit type - Emergency Visit Emergency Visit: Yes ED Registration Date: 05/26/18 Care time: The patient presented to the Emergency Department on the above date and was hospitalized for further evaluation of their emergent condition. - New Patient This patient is new to me today: No - Critical Care Critical Care patient: No - Discharge Referral Referred to [facility] Med P.C.: No
[2018-05-26] MEDS: oxyCODONE HCL 5 MG TABLET PO PRN ×3 (12:49→22:27)
[2018-05-26] MEDS: ACETAMINOPHEN 325 MG TABLET (FP) PO PRN ×3 (12:49→22:28)
[2018-05-26] MEDS: INSULIN SLIDING SCALE (NOVOLOG) 1 VIAL SQ SCH ×3 (12:50→22:14)
[2018-05-26] MEDS ORDERED: MORPHINE SULFATE 2 MG/ML VIAL IVPUSH ONE (20:00)
[2018-05-27] MEDS ORDERED: MORPHINE SULFATE 2 MG/ML VIAL IVPUSH ONE (02:00)
[2018-05-27] MEDS: SODIUM CHLORIDE 1,000 ML IV SCH ×2 (03:15→16:13)
[2018-05-27] MEDS: oxyCODONE HCL 5 MG TABLET PO PRN ×3 (05:23→15:59)
[2018-05-27] MEDS: ACETAMINOPHEN 325 MG TABLET (FP) PO PRN ×3 (05:24→16:00)
[2018-05-27] MEDS: INSULIN SLIDING SCALE (NOVOLOG) 1 VIAL SQ SCH ×4 (06:03→21:36)
[2018-05-27] MEDS ORDERED: TAMSULOSIN HCL 0.4 MG CAP PO SCH (08:32)
[2018-05-27] MEDS: TAMSULOSIN HCL 0.4 MG CAP PO SCH ×2 (09:22→09:26)
--- NOTE | 2018-05-27 11:20 | PN ---
Physical Exam: SUBJECTIVE: Patient seen and examined, She had an episode of worsening her pain , fever. At this time she is in no distress OBJECTIVE: SHe is in bed in no distress, is S/P oxycodone GENERAL: The patient is awake, alert, and fully oriented, in no acute distress. HEAD: Normal with no signs of trauma. EYES: PERRL, extraocular movements intact, sclera anicteric, conjunctiva clear. No ptosis. ENT: Ears normal, nares patent, oropharynx clear without exudates, moist mucous membranes. NECK: Trachea midline, full range of motion, supple. LUNGS: Breath sounds equal, clear to auscultation bilaterally, no wheezes, no crackles, no accessory muscle use. HEART: Regular rate and rhythm, S1, S2 without murmur, rub or gallop. ABDOMEN: Soft, nontender, nondistended, normoactive bowel sounds, no guarding, no rebound, no hepatosplenomegaly, no masses. EXTREMITIES: 2+ pulses, warm, well-perfused, no edema. NEUROLOGICAL: Cranial nerves II through XII grossly intact. Normal speech, gait not observed. PSYCH: Normal mood, normal affect. SKIN: Warm, dry, normal turgor, no rashes or lesions noted Vital Signs Period Temp Pulse Resp BP Sys/Corona Pulse Ox Last 24 Hr 99 F-100.5 F 100-112 18-20 136-160/59-87 Laboratory Results - last 24 hr 05/26/18 05/26/18 05/26/18 11:31 17:38 22:12 POC Glucometer 110 113 160 05/27/18 05:26 POC Glucometer 128 Active Medications Generic Name Dose Route Start Last Admin Trade Name Freq PRN Reason Stop Dose Admin Acetaminophen 325 mg 05/26/18 12:02 05/27/18 09:27 Tylenol - PO 05/29/18 12:01 325 mg Q4H PRN Administration PAIN SCALE 4-6 Sodium Chloride 1,000 mls @ 100 mls/hr 05/26/18 03:15 05/27/18 03:15 Normal Saline - IV Not Given ASDIR [facility] Insulin Aspart 1 vial 05/26/18 07:00 05/27/18 06:03 Novolog Vial Sliding Scale - SQ Not Given ACHS [facility] Protocol Oxycodone HCl 10 mg 05/27/18 08:31 05/27/18 09:26 Roxicodone - PO 10 mg Q4H PRN Administration PAIN SCALE 4-6 Tamsulosin HCl 0.8 mg 05/27/18 09:30 05/27/18 09:22 Flomax - PO 0.8 mg DAILY@0830 [facility] Administration ASSESSMENT/PLAN: She is a 57 Y/O F W DM, Obesity, nephrolithiasis, was recently evaluated in the ED for nephrolithiasis, was sent home on po Antibiotics, she is back due to severe pain, she initially was not on tamsulosin on DC Nephrolithiasis: She had another episode of sevre pain and low grade fever last night urine CX are negative from this admission will send CBC, BMP, CXs again today Will C/W iV fluids with bollus of fluids in between Increase the dose of tamssulosin to 0.8 mg daily from today Will F/u with recs( pending evaluation in this admission) pain control with percocet( increased the dose Will start on IV antibiotics again Fever: Her Urin CX was negative, will send UA, UCX, CBC and blood CX today.On admission there was no finding in favor of infection , No WBC in UA, and antibiotics were held, will restart the antibiotics. will monitor Diet: diabetic diet obesity: counseled about weight loss Dispo: DC home pending improvement of her symptoms and recs. DM:" she is on Metformin at home, will give sliding scale for coverage Will C./w lipitor home dose DVTppx: LOVENOX SQ Visit type - Emergency Visit Emergency Visit: Yes ED Registration Date: 05/26/18 Care time: The patient presented to the Emergency Department on the above date and was hospitalized for further evaluation of their emergent condition. - New Patient This patient is new to me today: No - Critical Care Critical Care patient: No - Discharge Referral Referred to [facility] Med [facility] No
[2018-05-27] MEDS ORDERED: CEFTRIAXONE 1 GM in DEXTROSE 5%-WATER - 50 ML IVPB ONE ×2 (12:00→22:00)
[2018-05-27] MEDS ORDERED: cefTRIAXone SODIUM 1 GM VIAL ONE ×2 (12:20→21:30)
[2018-05-27] MEDS ORDERED: DEXTROSE 5%-WATER - 50 ML IVPB ONE ×2 (12:20→21:31)
[2018-05-27 16:17] VITALS: BMI 32.8
[2018-05-27 16:44] LABS: BASO % 0.5 % (0-2.0); EOS % 2.6 % (0-4.5); HEMATOCRIT 31.2 % (32.4-45.2); HEMOGLOBIN 10.9 GM/dL (10.7-15.3); MCH 30.7 pg (25.7-33.7); MCHC 34.9 g/dl (32.0-36.0); MEAN CELL VOLUME 87.9 fl (80-96); MEAN PLT VOLUME 8.1 fl (7.5-11.1); NEUT % 68.9 % (42.8-82.8); PLATELET COUNT 224 K/MM3 (134-434); RBC 3.55 M/mm3 (3.60-5.2); RDW 13.5 % (11.6-15.6); WHITE BLOOD COUNT 7.5 K/mm3 (4.0-10.0)
[2018-05-27 17:03] LABS: ANION GAP 12 MMOL/L (8-16); BLOOD UREA NITROGEN 11 mg/dL (7-18); CALCIUM 8.2 mg/dL (8.5-10.1); CHLORIDE 103 mmol/L (98-107); CO2 23 mmol/L (21-32); GLUCOSE,RANDOM 92 mg/dL (74-106); POTASSIUM 4.2 mmol/L (3.5-5.1); SODIUM 138 mmol/L (136-145)
--- NOTE | 2018-05-27 17:21 | CON.GU ---
Consult Consult Specialty:: Urology Reason for Consultation:: Left renal colic - History of Present Illness Chief Complaint: Left flank pain - History Source History Provided By: Patient, Medical Record - Past Medical History ...: No - Past Surgical History Past Surgical History: Yes: Cholecystectomy - Alcohol/Substance Use Hx Alcohol Use: No - Smoking History Smoking history: Never smoked Home Medications - Allergies Allergies/Adverse Reactions: Allergies Allergy/AdvReac Type Severity Reaction Status Date / Time No Known Allergies Allergy Verified 05/22/18 11:38 - Home Medications Home Medications: Ambulatory Orders Atorvastatin Ca [Lipitor] 20 mg PO HS 03/29/17 Losartan Potassium [Cozaar -] 50 mg PO DAILY 03/29/17 Metoprolol Tartrate 25 mg PO BID #30 tablet 03/29/17 Metformin HCl [Metformin HCl ER] 500 mg PO BID 05/22/18 Physical Exam- Vital Signs: Vital Signs Temperature 98.6 F 05/27/18 13:41 Pulse Rate 102 H 05/27/18 13:41 Respiratory Rate 18 05/27/18 13:41 Blood Pressure 147/87 05/27/18 13:41 O2 Sat by Pulse Oximetry (%) 99 05/26/18 03:34 Renal/: Yes: CVA Tenderness - Left Labs: CBC, BMP 05/27/18 15:30 05/27/18 15:30 Imaging - Results Cat Scan: Report Reviewed Ultrasound: Report Reviewed Problem List - Problems (1) Hydronephrosis with obstructing calculus Assessment/Plan: 57 yo female w left obstructing 5 mm upj stone w hydro and severe pain Pt initially presented 5 days ago and was sent out returned in pain. Pt now w severe pain taking pain meds regularly on schedule Pt npo will place stent and definitively tx stone electively all options discussed w pt and Code(s): N13.2 - HYDRONEPHROSIS WITH RENAL AND URETERAL CALCULOUS OBSTRUCTION
[2018-05-27] MEDS ORDERED: DEXAMETHASONE SOD PHOSPHATE 4 MG/1 ML VIAL ONE (18:59)
[2018-05-27] MEDS ORDERED: SUCCINYLCHOLINE CHLORIDE 200 MG/10 ML VIAL ONE (18:59)
[2018-05-27] MEDS ORDERED: LIDOCAINE HCL/PF 2% SDV 5ML VIAL ONE (18:59)
[2018-05-27] MEDS ORDERED: fentaNYL CITRATE 250 MCG/5 ML VIAL ONE (18:59)
[2018-05-27] MEDS ORDERED: KETOROLAC TROMETHAMINE 30 MG/1 ML VIAL ONE (18:59)
[2018-05-27] MEDS ORDERED: PROPOFOL 20 ML ONE (18:59)
[2018-05-27] MEDS ORDERED: oxyCODONE HCL 5 MG TABLET PO PRN ×2 (19:47→19:48)
[2018-05-27] MEDS ORDERED: ONDANSETRON 4 MG/2 ML VIAL IVPUSH PRN (19:47)
[2018-05-27] MEDS ORDERED: PROMETHAZINE HCL 25 MG/1 ML VIAL IVPUSH PRN (19:47)
--- NOTE | 2018-05-27 19:52 | OP ---
Operative Note - Note: Operative Date: 05/27/18 Pre-Operative Diagnosis: left renaql colic Operation: left ureteral stent placement Post-Operative Diagnosis: Same as Pre-op Surgeon: Serjio Moser MD. Anesthesia: General Operative Report Dictated: Yes
[2018-05-27] MEDS ORDERED: LACTATED RINGERS SOLUTION 1,000 ML IV SCH (20:00)
[2018-05-27] MEDS ORDERED: ELECTROLYTE-148 SOLN 1,000 ML IV SCH (20:00)
--- NOTE | 2018-05-27 20:17 | OP ---
DATE OF OPERATION: 05/27/2018 PREOPERATIVE DIAGNOSIS: Left renal colic. POSTOPERATIVE DIAGNOSIS: Left renal colic. PROCEDURE: Cystoscopy, left ureteral stent placement. HISTORY: This is a very pleasant 57-year-old female with a several-day history of renal colic, initially presented approximately 5 days prior to procedure, was sent out to be followed as an outpatient; however, her pain was severe, described as 10/10, and re-presented to the ER. CAT scan had previously shown a 5-mm left UPJ stone with hydronephrosis. The patient required continual pain medication. She initially had an elevated white count and some signs of sepsis, however, the patient's white count decreased and vital signs have been stable, no signs of SIRS. After a discussion of treatment options, the patient elected to undergo the above-stated procedure. Risks and benefits of treatment, alternative treatments discussed in detail. BRIEF OPERATIVE NOTE: Patient brought to the operating room, placed in supine position. Once general anesthesia was administered, patient transferred to dorsal lithotomy position, prepped and draped in standard sterile fashion. Intravenous antibiotic had been given previously. At this time, a 22-Thai cystoscope sheath was placed into the bladder under direct vision. The bladder was unremarkable. The left ureteral orifice identified. A 0.038 Sensor wire was passed into the left renal pelvis and confirmed fluoroscopically. A retrograde ureteropyelogram was performed. The stone was visualized up by the renal pelvis. The calices were somewhat blunted; however, there was no gross hydronephrosis. There was no extravasation. At this time, a 22-cm 6-Thai double-J stent was placed over the guidewire and fluoroscopically confirmed to be the normal position. The wire was removed. The bladder was drained, patient brought to recovery room in stable and satisfactory condition. JAXON MAURO M.D. [id number]
[2018-05-28] MEDS: INSULIN SLIDING SCALE (NOVOLOG) 1 VIAL SQ SCH ×2 (06:03→11:53)
[2018-05-28] MEDS: SODIUM CHLORIDE 1,000 ML IV SCH (06:03)
[2018-05-28] MEDS: TAMSULOSIN HCL 0.4 MG CAP PO SCH (09:33)
[2018-05-28 09:40] VITALS: BP 145/90; PULSE 95; TEMP 98
[2018-05-28] MEDS ORDERED: METOPROLOL TARTRATE 50 MG TABLET (FP) PO ONE (12:07)
--- NOTE | 2018-05-28 12:14 | DS ---
Physical Examination Vital Signs: Vital Signs Temperature 98 F 05/28/18 09:00 Pulse Rate 95 H 05/28/18 09:00 Respiratory Rate 18 05/28/18 09:00 Blood Pressure 145/90 05/28/18 09:00 O2 Sat by Pulse Oximetry (%) 95 05/27/18 21:30 Constitutional: Yes: Well Nourished, No Distress Eyes: Yes: Conjunctiva Clear, EOM Intact HENT: Yes: Atraumatic, Normocephalic Neck: Yes: Supple, Trachea Midline. No: Decreased ROM, Lymphadenopathy Cardiovascular: Yes: Regular Rate and Rhythm, S1, S2. No: Bruit, JVD, Gallop, Murmur, Rub Respiratory: Yes: Regular, CTA Bilaterally Gastrointestinal: Yes: Normal Bowel Sounds, Soft Renal/: Yes: CVA Tenderness - Left. No: Anuria, Bladder Distention Musculoskeletal: No: Back Pain, Joint Stiffness, Joint Swelling Extremities: No: Calf Tenderness Edema: No Peripheral Pulses: Left Doralis Pedis: 2+, Right Dorsalis Pedis: 2+ Neurological: Yes: Alert, Oriented, Cran Nerves II-XII Intact ...Motor Strength: WNL, LUE, LLE, RUE, RLE Labs: CBC, BMP 05/27/18 15:30 05/27/18 15:30 Discharge Summary Reason For Visit: PAIN, ACUTE Current Active Problems BARBARA (acute kidney injury) (Acute) Hydronephrosis with obstructing calculus (Acute) HTN SVT T2DM Hospital Course: 57 y/o F with hx nephrolithiasis ([id number] ureteral stone at [facility] with mild L hydro on spiral Ct- dx recent admission) HTN, HLD, NIDDM, SVT who presents to the ED with continued L flank pain, after recent d/c 05/22/18 from [facility] ED. On recent admission, pt was seen by urology, rpt imging shows Left sided Hydronephrosis Left Uretral Stent placed, patient is asymptomatic will be Dc Home today F/U with and PCP in a wk. Time Spent; 35 minutes, Condition: Guarded - Instructions Diet, Activity, Other Instructions: follow up with urology [phone] Referrals: Landon Ricci MD [Primary Care Provider] - 1 Week Lee Michael MD [Staff Physician] - 1 Week Disposition: HOME - Home Medications Comprehensive Discharge Medication List: Ambulatory Orders Atorvastatin Ca [Lipitor] 20 mg PO HS 03/29/17 Losartan Potassium [Cozaar -] 50 mg PO DAILY 03/29/17 Metoprolol Tartrate 25 mg PO BID #30 tablet 03/29/17 Metformin HCl [Metformin HCl ER] 500 mg PO BID 05/22/18 Cefuroxime Axetil [Ceftin -] 500 mg PO Q12H #20 tablet 05/28/18
== END 2018-05-28 12:59 | disposition home or self-care (01) | DRG 661 ==
LOC: JER 21:57 → JERBED 05-26 01:15 → J7W 05-26 04:24
PROVIDERS: ADMIT Internal Medicine; ATTEND Internal Medicine
PROC: 0T778DZ Dilation of Left Ureter with Intraluminal Device, Via Natural or Artificial Opening Endoscopic (ICD-10-PCS; principal; 2018-05-27 19:00)
DX: N13.2 Hydronephrosis with renal and ureteral calculous obstruction (principal); I10 Essential (primary) hypertension; E78.5 Hyperlipidemia, unspecified; E11.9 Type 2 diabetes mellitus without complications; N17.9 Acute kidney failure, unspecified; E86.0 Dehydration; E66.9 Obesity, unspecified; Z68.32 Body mass index [BMI] 32.0-32.9, adult
CPT/HCPCS: 36415; 76000-TC-FY; 76775-TC; 76856-TC; 80048; 80053; 81003; 82962; 83735; 84100; 85025; 87040; 87086; 94760; 99283-25; J7030